=== PATIENT | male | born 2000 | race African-American/Black ===

== ENCOUNTER 2020-09-06 20:05 | Emergency (ER) | payer MEDICAID ==
[~2020-09-06] VITALS: Ht 180.3 cm; Wt 73.0 kg
[2020-09-06 20:14] VITALS: BP 126/86
== END 2020-09-06 20:54 | disposition left against medical advice (07) ==
LOC: ER 20:05
DX: Z53.21 Procedure and treatment not carried out due to patient leaving prior to being seen by health care provider (principal)

== ENCOUNTER 2022-02-23 04:53 | Emergency (ER) | payer MEDICAID ==
[~2022-02-23] VITALS: Ht 177.8 cm; Wt 78.0 kg
[2022-02-23] MEDS ORDERED: KETOROLAC 60MG/2ML VIAL IM STA (05:35)
[2022-02-23 05:57] LABS: BASOPHILS % 0.5 % (0.0-2.0); EOSINOPHILS % 4.1 % (0.0-5.0); HEMATOCRIT. 43.8 % (42.0-52.0); HEMOGLOBIN. 14.4 g/dL (14.0-18.0); LYMPHOCYTES % 32.5 % (20.0-50.0); MEAN CORPUSCULAR VOLUME 97.5 fL (80.0-94.0); MEAN PLATELET VOLUME 8.3 fl (7.4-10.4); MONOCYTES % 12.1 % (2.0-8.0); NEUTROPHILS % 50.8 % (40.0-76.0); PLATELET 210 x1000/uL (130-400); RED BLOOD CELL COUNT 4.49 mill/uL (4.7-6.1); RED CELL DISTRIBUTION WIDTH 12.9 % (11.6-14.6)
[2022-02-23 06:11] LABS: CHLORIDE 107 mEq/L (98-107)
[2022-02-23 06:28] VITALS: BP 140/76
[2022-02-23 07:34] LABS: CLARITY URINE CLEAR (CLEAR); COLOR URINE YELLOW (YELLOW); KETONES URINE NEGATIVE (NEGATIVE); LEUKOCYTE ESTERASE URINE NEGATIVE (NEGATIVE); NITRITE URINE NEGATIVE (NEGATIVE); OCCULT BLOOD URINE NEGATIVE (NEGATIVE); PROTEIN URINE NEGATIVE (NEGATIVE); SPECIFIC GRAVITY URINE 1.022 (1.005-1.030)
[2022-02-23] MEDS ORDERED: IBUP-2028 MT (07:44)
[2022-02-25 04:06] LABS: NEISSERIA GONORRHOEAE NAA Negative (Negative)
== END 2022-02-23 08:19 | disposition home or self-care (01) ==
LOC: ER 04:53
DX: N43.3 Hydrocele, unspecified (principal); J45.909 Unspecified asthma, uncomplicated
CPT/HCPCS: 36415; 76870; 80053; 81003; 85025; 87491; 87591; 93976; 96372; 99284; J1885

== ENCOUNTER 2023-11-06 08:16 | Emergency (ER) | payer MEDICAID, OTHER ==
[~2023-11-06] VITALS: Ht 177.8 cm; Wt 72.0 kg
[~2023-11-06 08:16] MED LIST: IBUP-2028 MT
[2023-11-06 08:19] VITALS: TEMP 98
[2023-11-06 09:09] LABS: BASOPHILS % 0.5 % (0.0-2.0); EOSINOPHILS % 1.4 % (0.0-5.0); HEMATOCRIT. 45.8 % (42.0-52.0); HEMOGLOBIN. 15.2 g/dL (14.0-18.0); LYMPHOCYTES % 21.1 % (20.0-50.0); MEAN CORPUSCULAR HEMOGLOBIN 31.9 pg (28.0-32.0); MEAN CORPUSCULAR HGB CONC 33.3 g/dL (31.0-37.0); MEAN PLATELET VOLUME 8.4 fl (7.4-10.4); MONOCYTES % 3.9 % (2.0-8.0); NEUTROPHILS % 73.1 % (40.0-76.0); PLATELET 241 x1000/uL (130-400); RED BLOOD CELL COUNT 4.77 mill/uL (4.7-6.1); RED CELL DISTRIBUTION WIDTH 13.2 % (11.6-14.6); WHITE BLOOD COUNT 10.3 x1000/uL (4.5-11.0)
[2023-11-06 09:18] LABS: INR 0.9; PROTHROMBIN TIME 10.6 sec (9.6-11.0)
[2023-11-06 09:31] LABS: ALANINE AMINOTRANSFERASE 8 IU/L (10-49); ALBUMIN 5.5 g/dL (3.2-4.8); ASPARTATE AMINOTRANSFERASE 27 IU/L (<34); BILIRUBIN TOTAL 0.5 mg/dL (0.1-1.0); CALCIUM 9.6 mg/dL (8.7-10.4); CARBON DIOXIDE 23 mEq/L (21-32); CHLORIDE 106 mEq/L (98-107); CREATININE 1.2 mg/dL (0.6-1.3); GLUCOSE 129 mg/dL (70-105); POTASSIUM 3.6 mEq/L (3.5-5.1); PROTEIN TOTAL 8.8 g/dL (6.0-8.3); SODIUM 138 mEq/L (136-145); UREA NITROGEN BLOOD 20 mg/dL (9-23)
[2023-11-06 09:54] LABS: LACTIC ACID 4.3 mmol/L (0.4-2.0)
[2023-11-06 09:57] LABS: TROPONIN I HIGH SENSITIVITY < 4 ng/L (3.0-53)
[2023-11-06] MEDS: SODIUM CHLORIDE 0.9% 1000ML BAG (SEPSIS BOLUS) IV ONE (10:39)
[2023-11-06] MEDS: PIPERACILLIN/TAZO 3.375G/50ML 50 ML IV ONE (10:39)
[2023-11-06 10:41] VITALS: BP 127/81; PULSE 86; RESP 10
[2023-11-06] MEDS: VANCOMYCIN 1G PREMIX 200 ML IV ONE (11:00)
[2023-11-06 11:16] LABS: CLARITY URINE CLEAR (CLEAR); COLOR URINE YELLOW (YELLOW); GLUCOSE URINE TRACE (NEGATIVE); KETONES URINE 2+ (NEGATIVE); LEUKOCYTE ESTERASE URINE NEGATIVE (NEGATIVE); NITRITE URINE NEGATIVE (NEGATIVE); OCCULT BLOOD URINE NEGATIVE (NEGATIVE); PH URINE 5.5 (4.5-8.0); PROTEIN URINE 1+ (NEGATIVE); SPECIFIC GRAVITY URINE 1.029 (1.005-1.030)
[2023-11-06 11:42] LABS: MUCUS URINE 2+ /lpf (NONE/TRACE); SQUAMOUS EPITHELIAL CELL URINE 2+ /lpf (RARE/1+)
[2023-11-06 11:47] LABS: RBC URINE 0-2 /hpf (0-2)
[2023-11-06 11:48] LABS: BACTERIA URINE TRACE
== END 2023-11-06 14:25 | disposition home or self-care (01) ==
LOC: ER 08:16 → EDBEDREQ 12:28 → EDBEDREQTM 12:28 → ER 14:25 → CANBEDREQ 11-07 01:20
DX: A41.9 Sepsis, unspecified organism (principal); R65.20 Severe sepsis without septic shock; E16.2 Hypoglycemia, unspecified; Z86.59 Personal history of other mental and behavioral disorders
CPT/HCPCS: 80053; 81003; 82962; 83605; 85025; 85610; 87040; 87086; 84484; 36415; 84145; 71045; 93005; 96365; 96375; 99291; J2543; J3370; J7030; Z7610 ×5

== ENCOUNTER 2024-01-06 03:30 | Emergency (ER) | payer MEDICAID, OTHER ==
[~2024-01-06] VITALS: Ht 180.3 cm; Wt 70.0 kg
[2024-01-06] MEDS ORDERED: ONDANSETRON HCL 4MG/2ML INJ IV STA (03:37)
[2024-01-06] MEDS ORDERED: KETOROLAC 30MG/ML VIAL IV STA (03:37)
[2024-01-06 03:41] VITALS: BP 140/70; PULSE 86; RESP 18; O2SAT 100
[2024-01-06] MEDS ORDERED: SODIUM CHLORIDE 0.9% 1,000 ML IV ONE (03:45)
[2024-01-06 03:57] LABS: BASOPHILS % 0.8 % (0.0-2.0); EOSINOPHILS % 4.1 % (0.0-5.0); HEMATOCRIT. 42.6 % (42.0-52.0); HEMOGLOBIN. 14.1 g/dL (14.0-18.0); LYMPHOCYTES % 48.7 % (20.0-50.0); MEAN CORPUSCULAR HEMOGLOBIN 31.9 pg (28.0-32.0); MEAN CORPUSCULAR VOLUME 96.6 fL (80.0-94.0); MEAN PLATELET VOLUME 8.2 fl (7.4-10.4); MONOCYTES % 10.2 % (2.0-8.0); NEUTROPHILS % 36.2 % (40.0-76.0); PLATELET 197 x1000/uL (130-400); RED BLOOD CELL COUNT 4.41 mill/uL (4.7-6.1); RED CELL DISTRIBUTION WIDTH 12.7 % (11.6-14.6); WHITE BLOOD COUNT 5.3 x1000/uL (4.5-11.0)
[2024-01-06 04:05] LABS: CARBON DIOXIDE 23 mEq/L (21-32); CHLORIDE 108 mEq/L (98-107); POTASSIUM 3.5 mEq/L (3.5-5.1); SODIUM 139 mEq/L (136-145)
[2024-01-06 04:06] LABS: CALCIUM 8.9 mg/dL (8.7-10.4)
[2024-01-06 04:11] LABS: GLUCOSE 91 mg/dL (70-105); UREA NITROGEN BLOOD 12 mg/dL (9-23)
[2024-01-06 04:12] LABS: ALANINE AMINOTRANSFERASE < 7 IU/L (10-49)
[2024-01-06 04:13] LABS: ALBUMIN 4.4 g/dL (3.2-4.8); ASPARTATE AMINOTRANSFERASE 18 IU/L (<34); BILIRUBIN TOTAL 0.5 mg/dL (0.1-1.0); PROTEIN TOTAL 7.8 g/dL (6.0-8.3)
[2024-01-06 04:16] LABS: PROTHROMBIN TIME 11.5 sec (9.6-11.0)
[2024-01-06 04:29] LABS: ETHANOL BLOOD < 10 mg/dL (<10)
[2024-01-06] MEDS ORDERED: POLY17PO3 PO (08:00)
[2024-01-06] MEDS ORDERED: TOPUD PO (08:00)
[2024-01-06 08:33] VITALS: TEMP 98.4
[2024-01-06] MEDS: ONDANSETRON HCL 4MG TABLET PO ONE (08:33)
[2024-01-06] MEDS: ACETAMINOPHEN 325MG TABLET PO ONE (08:33)
[2024-01-06] MEDS: LACTULOSE 20G/30ML UDC PO ONE (08:33)
== END 2024-01-06 08:42 | disposition home or self-care (01) ==
LOC: ER 03:39
DX: K59.00 Constipation, unspecified (principal); R10.12 Left upper quadrant pain; F12.90 Cannabis use, unspecified, uncomplicated
CPT/HCPCS: 80053; 80320; 83690; 85025; 85610; 36415; 74176; 99284; Q0162; J7030; G0480

== ENCOUNTER 2024-05-27 21:12 | Emergency (ER) | payer OTHER ==
[~2024-05-27] VITALS: Ht 182.9 cm; Wt 82.0 kg
[~2024-05-27 21:12] MED LIST changes: +POLY17PO3 PO; +TOPUD PO
[2024-05-27 21:40] VITALS: BP 112/61; PULSE 78; RESP 16; TEMP 98; O2SAT 98
[2024-05-28] MEDS: MAGNESIUM/ALUMINUM HYDROXIDE/SIMETHICONE 30ML UDC PO ONE (02:15)
[2024-05-28] MEDS: ACETAMINOPHEN 325MG TABLET PO ONE (02:15)
[2024-05-28] MEDS: FAMOTIDINE 20MG TABLET PO ONE (02:15)
[2024-05-28] MEDS: FAMOTIDINE 20MG TABLET PO NR (02:17)
[2024-05-28] MEDS: ACETAMINOPHEN 325MG TABLET PO NR (02:17)
[2024-05-28] MEDS: MAGNESIUM/ALUMINUM HYDROXIDE/SIMETHICONE 30ML UDC PO NR (02:17)
[2024-05-28 02:33] LABS: BASOPHILS % 0.7 % (0.0-2.0); EOSINOPHILS % 6.2 % (0.0-5.0); HEMATOCRIT. 42.4 % (42.0-52.0); HEMOGLOBIN. 14.2 g/dL (14.0-18.0); LYMPHOCYTES % 51.9 % (20.0-50.0); MEAN CORPUSCULAR HEMOGLOBIN 32.2 pg (28.0-32.0); MEAN CORPUSCULAR HGB CONC 33.5 g/dL (31.0-37.0); MEAN CORPUSCULAR VOLUME 96.3 fL (80.0-94.0); MEAN PLATELET VOLUME 8.1 fl (7.4-10.4); MONOCYTES % 8.5 % (2.0-8.0); NEUTROPHILS % 32.7 % (40.0-76.0); PLATELET 219 x1000/uL (130-400); RED CELL DISTRIBUTION WIDTH 12.9 % (11.6-14.6); WHITE BLOOD COUNT 5.2 x1000/uL (4.5-11.0)
[2024-05-28 02:41] LABS: CHLORIDE 106 mEq/L (98-107); POTASSIUM 4.5 mEq/L (3.5-5.1); SODIUM 138 mEq/L (136-145)
[2024-05-28 02:42] LABS: CALCIUM 9.8 mg/dL (8.7-10.4); CARBON DIOXIDE 26 mEq/L (21-32)
[2024-05-28 02:47] LABS: GLUCOSE 86 mg/dL (70-105)
[2024-05-28 02:48] LABS: UREA NITROGEN BLOOD 19 mg/dL (9-23)
[2024-05-28 02:49] LABS: ALANINE AMINOTRANSFERASE < 7 IU/L (10-49); ASPARTATE AMINOTRANSFERASE 27 IU/L (<34)
[2024-05-28 02:50] LABS: BILIRUBIN TOTAL 0.5 mg/dL (0.1-1.0)
[2024-05-28] MEDS ORDERED: MAG355OR21 MT (03:16)
[2024-05-28] MEDS ORDERED: ACET-2708 MT (03:16)
== END 2024-05-28 04:13 | disposition home or self-care (01) ==
LOC: ER 21:12
DX: R10.13 Epigastric pain (principal); F12.10 Cannabis abuse, uncomplicated; Z79.899 Other long term (current) drug therapy
CPT/HCPCS: 36415; 74176; 76705; 80053; 85025; 93005; 99284

== ENCOUNTER 2024-10-04 23:07 | Emergency (ER) | payer OTHER ==
[~2024-10-04] VITALS: Ht 188 cm; Wt 80.0 kg
[~2024-10-04 23:07] MED LIST changes: +ACET-2708 MT; +MAG355OR21 MT
[2024-10-04 23:12] VITALS: O2SAT 98
[2024-10-05 02:23] LABS: CLARITY URINE CLEAR (CLEAR); COLOR URINE YELLOW (YELLOW); GLUCOSE URINE NEGATIVE (NEGATIVE); KETONES URINE NEGATIVE (NEGATIVE); LEUKOCYTE ESTERASE URINE NEGATIVE (NEGATIVE); NITRITE URINE NEGATIVE (NEGATIVE); OCCULT BLOOD URINE NEGATIVE (NEGATIVE); PROTEIN URINE NEGATIVE (NEGATIVE); SPECIFIC GRAVITY URINE 1.022 (1.005-1.030)
[2024-10-05] MEDS ORDERED: PROT20 MT (02:31)
[2024-10-05 02:37] VITALS: BP 120/76; PULSE 79; RESP 19; TEMP 36.66960; O2SAT 100
== END 2024-10-05 02:39 | disposition home or self-care (01) ==
LOC: ER 23:07
DX: R10.9 Unspecified abdominal pain (principal); E11.9 Type 2 diabetes mellitus without complications; I10 Essential (primary) hypertension; F10.90 Alcohol use, unspecified, uncomplicated; F12.90 Cannabis use, unspecified, uncomplicated; Z79.899 Other long term (current) drug therapy; Y90.9 Presence of alcohol in blood, level not specified
CPT/HCPCS: 99283; 81003; Z7610 ×2; A4606

== ENCOUNTER 2024-10-12 17:50 | Emergency (ER) | payer MEDICAID, OTHER ==
[~2024-10-12] VITALS: Ht 182.9 cm; Wt 75.0 kg
[~2024-10-12 17:50] MED LIST changes: +PROT20 MT
[2024-10-12 17:52] VITALS: O2SAT 99
[2024-10-12] MEDS ORDERED: IBUP-2029 MT (19:53)
[2024-10-12 20:14] VITALS: BP 129/86; PULSE 66; RESP 19; TEMP 36.8; O2SAT 100
== END 2024-10-12 20:16 | disposition home or self-care (01) ==
LOC: ER 17:50
DX: R07.89 Other chest pain (principal); E11.9 Type 2 diabetes mellitus without complications; I10 Essential (primary) hypertension; Z79.899 Other long term (current) drug therapy
CPT/HCPCS: 71045; 93005; 99283

== ENCOUNTER 2025-03-07 16:41 | Emergency (ER) | payer MEDICAID, OTHER ==
[~2025-03-07] VITALS: Ht 180.3 cm; Wt 73.0 kg
[~2025-03-07 16:41] MED LIST changes: +IBUP-2029 MT
[2025-03-07 16:44] VITALS: O2SAT 99
[2025-03-07] MEDS: KETOROLAC 30MG/ML VIAL IM STA (19:15)
[2025-03-07 20:00] LABS: CLARITY URINE CLOUDY (CLEAR); COLOR URINE YELLOW (YELLOW); GLUCOSE URINE NEGATIVE (NEGATIVE); KETONES URINE NEGATIVE (NEGATIVE); LEUKOCYTE ESTERASE URINE TRACE (NEGATIVE); NITRITE URINE NEGATIVE (NEGATIVE); OCCULT BLOOD URINE NEGATIVE (NEGATIVE); PROTEIN URINE 1+ (NEGATIVE); SPECIFIC GRAVITY URINE 1.028 (1.005-1.030)
[2025-03-07 20:12] LABS: RBC URINE NONE SEEN /hpf (0-2); SQUAMOUS EPITHELIAL CELL URINE RARE /lpf (RARE/1+)
[2025-03-07 20:13] LABS: BACTERIA URINE 1+
[2025-03-07 20:18] LABS: BASOPHILS % 0.7 % (0.0-2.0); EOSINOPHILS % 1.4 % (0.0-5.0); HEMATOCRIT. 41.3 % (42.0-52.0); HEMOGLOBIN. 14.1 g/dL (14.0-18.0); LYMPHOCYTES % 22.8 % (20.0-50.0); MEAN CORPUSCULAR HEMOGLOBIN 32.4 pg (28.0-32.0); MEAN CORPUSCULAR VOLUME 95.1 fL (80.0-94.0); MEAN PLATELET VOLUME 8.3 fl (7.4-10.4); MONOCYTES % 11.7 % (2.0-8.0); NEUTROPHILS % 63.4 % (40.0-76.0); PLATELET 203 x1000/uL (130-400); RED BLOOD CELL COUNT 4.34 mill/uL (4.7-6.1); RED CELL DISTRIBUTION WIDTH 12.4 % (11.6-14.6); WHITE BLOOD COUNT 6.4 x1000/uL (4.5-11.0)
[2025-03-07 20:23] LABS: CHLORIDE 105 mEq/L (98-107); POTASSIUM 4.1 mEq/L (3.5-5.1); SODIUM 143 mEq/L (136-145)
[2025-03-07 20:24] LABS: CARBON DIOXIDE 31 mEq/L (21-32)
[2025-03-07 20:29] LABS: GLUCOSE 95 mg/dL (70-105); UREA NITROGEN BLOOD 15 mg/dL (9-23)
[2025-03-07 20:31] LABS: ALANINE AMINOTRANSFERASE 8 IU/L (10-49); ALBUMIN 5.1 g/dL (3.2-4.8); ASPARTATE AMINOTRANSFERASE 33 IU/L (<34); BILIRUBIN DIRECT 0.1 mg/dL (<=3.0); BILIRUBIN TOTAL 0.4 mg/dL (0.1-1.0); TROPONIN I HIGH SENSITIVITY < 4 ng/L (3.0-53)
[2025-03-07] MEDS ORDERED: CYCL5TAB3 MT (21:41)
[2025-03-07] MEDS ORDERED: OMEP20CA14 MT (21:41)
[2025-03-07] MEDS ORDERED: NAPR-681 MT (21:41)
[2025-03-07] MEDS ORDERED: MAG355OR21 MT (21:41)
[2025-03-07 21:53] VITALS: BP 108/71; PULSE 94; RESP 12; TEMP 36.9; O2SAT 99
== END 2025-03-07 22:01 | disposition home or self-care (01) ==
LOC: ER 16:41
DX: M94.0 Chondrocostal junction syndrome [Tietze] (principal); R07.89 Other chest pain; K29.70 Gastritis, unspecified, without bleeding; I10 Essential (primary) hypertension; F12.90 Cannabis use, unspecified, uncomplicated; Z79.899 Other long term (current) drug therapy
CPT/HCPCS: 99285; 74176; 71045; 80076; 80048; 81003; 83880; 83690; 85025; 84484; 36415; 93005; 96372; J1885

== ENCOUNTER 2025-03-25 19:35 | Emergency (ER) | payer MEDICAID, OTHER ==
[~2025-03-25] VITALS: Ht 182.9 cm; Wt 70.0 kg
[~2025-03-25 19:35] MED LIST changes: +CYCL5TAB3 MT; +NAPR-681 MT; +OMEP20CA14 MT
[2025-03-25 19:36] VITALS: O2SAT 100
[2025-03-25 21:21] LABS: BASOPHILS % 1.1 % (0.0-2.0); EOSINOPHILS % 2.1 % (0.0-5.0); HEMATOCRIT. 42.5 % (42.0-52.0); HEMOGLOBIN. 14.4 g/dL (14.0-18.0); LYMPHOCYTES % 55.6 % (20.0-50.0); MEAN PLATELET VOLUME 7.9 fl (7.4-10.4); MONOCYTES % 8.4 % (2.0-8.0); NEUTROPHILS % 32.8 % (40.0-76.0); PLATELET 272 x1000/uL (130-400); RED BLOOD CELL COUNT 4.48 mill/uL (4.7-6.1); RED CELL DISTRIBUTION WIDTH 12.6 % (11.6-14.6)
[2025-03-25 21:35] LABS: CREATININE 1.0 mg/dL (0.6-1.3); UREA NITROGEN BLOOD 19 mg/dL (9-23)
[2025-03-25 21:37] LABS: TROPONIN I HIGH SENSITIVITY < 4 ng/L (3.0-53)
[2025-03-25] MEDS: ONDANSETRON HCL 4MG/2ML INJ IV ONE (21:52)
[2025-03-25 22:16] LABS: ASPARTATE AMINOTRANSFERASE 21 IU/L (<34); BILIRUBIN DIRECT 0.2 mg/dL (<=3.0); BILIRUBIN TOTAL 0.4 mg/dL (0.1-1.0); PROTEIN TOTAL 7.8 g/dL (6.0-8.3)
[2025-03-25] MEDS ORDERED: OMEP20CA14 MT (23:17)
[2025-03-25 23:52] VITALS: BP 116/70; PULSE 84; RESP 12; TEMP 36.7; O2SAT 99
== END 2025-03-25 23:55 | disposition home or self-care (01) ==
LOC: ER 19:35
DX: R07.89 Other chest pain (principal); K29.70 Gastritis, unspecified, without bleeding; E11.9 Type 2 diabetes mellitus without complications; I10 Essential (primary) hypertension; R06.02 Shortness of breath; Z79.899 Other long term (current) drug therapy; Z86.59 Personal history of other mental and behavioral disorders
CPT/HCPCS: 80076; 80048; 83880; 83690; 85025; 84484; 36415; 71045; 93005; 96374; 99285; J2405; Z7610 ×2; A4606